=== PATIENT | female | born 1960 | race Caucasian/White ===

== ENCOUNTER 2016-12-25 18:59 | Emergency (ER) | payer BC ==
[2016-12-25 19:25] VITALS: BP 118/61
--- NOTE | 2016-12-25 19:39 | UC ---
Eye Complaint HPI - HPI Summary HPI Summary: right eye redness / white discharge x 1 day no eye pain , no change in vision - History of Current Complaint Chief Complaint: UCEye Stated Complaint: RIGHT EYE COMPLAINT Time Seen by Provider: 12/25/16 19:13 Hx Obtained From: Patient Onset/Duration: Gradual Onset, Lasting Days - 1, Still Present Timing: Constant Severity Initially: Moderate Severity Currently: Moderate Location of Injury: Conjunctiva Aggravating Factor(s): Blinking Alleviating Factor(s): Nothing Associated Signs And Symptoms: Positive: Drainage (Purulent) - right eye. Negative: Photophobia, Vision Impairment Right, Vision Impairment Left, Fever, Swelling - Allergies/Home Medications Allergies/Adverse Reactions: Allergies Allergy/AdvReac Type Severity Reaction Status Date / Time No Known Allergies Allergy Verified 12/25/16 19:18 PMH/Surg Hx/FS Hx/Imm Hx Previously Healthy: Yes - Surgical History Surgical History: Yes Surgery Procedure, Year, and Place: bunionectomy - Family History Known Family History: Negative: Diabetes - Social History Alcohol Use: Occasionally Substance Use Type: None Smoking Status (MU): Never Smoked Tobacco - Immunization History Most Recent Influenza Vaccination: 04/2015 Review of Systems Constitutional: Negative Skin: Negative Eyes: Drainage, Eye Redness ENT: Negative Respiratory: Negative All Other Systems Reviewed And Are Negative: Yes Physical Exam Triage Information Reviewed: Yes Appearance: Well-Appearing, No Pain Distress, Well-Nourished Vital Signs: Initial Vital Signs Temp 99.4 F 12/25/16 19:19 Pulse 68 12/25/16 19:19 Resp 18 12/25/16 19:19 BP 118/61 12/25/16 19:19 Pulse Ox 99 12/25/16 19:19 Vital Signs Reviewed: Yes Eyes: Positive: Conjunctiva Inflamed - right eye, Discharge - right eye ENT: Positive: Normal ENT inspection, Hearing grossly normal, Pharynx normal Neck exam: Normal Neck: Positive: Supple, Nontender Respiratory: Positive: Chest non-tender, Lungs clear, Normal breath sounds Cardiovascular: Positive: RRR, No Murmur, Pulses Normal Skin Exam: Normal Eye Complaint Course/Dx - Differential Dx/Diagnosis Provider Diagnoses: conjunctivitis right eye Discharge - Discharge Plan Condition: Stable Disposition: HOME Prescriptions: Tobramycin 0.3% [email or web address]* 1 drop RIGHT EYE Q4H #1 btl Patient Education Materials: Conjunctivitis (ED) Forms: *Work Release Referrals: Osmar Huston DO [Primary Care Provider] - 7 Days
== END 2016-12-25 19:43 | disposition home or self-care (01) ==
LOC: UCCORT 18:59
DX: H10.89 Other conjunctivitis (principal)
CPT/HCPCS: 99212; G0463

== ENCOUNTER 2023-12-08 05:41 | Observation (INO) ==
[~2023-12-08 05:41] MED LIST: Metoclopramide 5 MG/ML VIAL (10 mg) IV PRN; NS 0.45% 1000 ml BAG 1,000 ML IV SCH; Naloxone 0.4 mg VIAL 0.4 mg/ml 1 ml VIAL IV PRN; Ondansetron 4 mg VIAL 2 MG/ML 2 ml VIAL IV PRN
[2023-12-08] MEDS: Acetaminophen IV 1 GM/100ML 1,000 MG/100 ML BAG IV ONE (06:04)
[2023-12-08] MEDS: Buffered Lidocaine 1% SYRIN 1 ml INTRADERM ONE (06:04)
[2023-12-08] MEDS ORDERED: ceFAZolin 2 GM in NS PREMIX 2 GM/100 ML BAG IVPB ONE (06:07)
[2023-12-08] MEDS ORDERED: Tranexamic Acid 1 GM/100ML BAG 2,000 MG/200 ML BAG IV ONE (06:07)
[2023-12-08 06:27] LABS: Rapid COVID-19 Molecular Undetected (Undetected)
[2023-12-08] MEDS: Lactated Ringers 1000 ml BAG 1,000 ML IV SCH ×2 (06:31→11:45)
[2023-12-08] MEDS: Scopolamine 1 mg/72hr PATCH TRANSDERM ONE (06:32)
[2023-12-08] MEDS ORDERED: Propofol 10 MG/ML 20 ML BTL ONE ×2 (07:10→08:49)
[2023-12-08] MEDS ORDERED: Lidocaine 2% PF 5 ML VIAL ONE (07:10)
[2023-12-08] MEDS ORDERED: fentaNYL 100 mcg/2 ml 50 MCG/ML VIAL ONE ×3 (07:10→10:07)
[2023-12-08] MEDS ORDERED: ROPIVACAINE 5 MG/ML 30 ML BTL (0.5%) ONE (07:11)
[2023-12-08] MEDS ORDERED: Dexamethasone IV 4 MG/ML VIAL 1 ml VIAL ONE (07:11)
[2023-12-08] MEDS ORDERED: Midazolam 2 mg/2 ml VIAL 1 mg/ml 2 ml VIAL (2 mg) ONE ×2 (07:11)
[2023-12-08] MEDS ORDERED: Ondansetron 4 mg VIAL 2 MG/ML 2 ml VIAL IV PRN (07:25)
[2023-12-08] MEDS ORDERED: Lactulose 30 ml UDC PO PRN (07:25)
[2023-12-08] MEDS ORDERED: Magnesium Hydroxide LIQ 30 ML UDC PO PRN (07:25)
[2023-12-08] MEDS ORDERED: Ondansetron ODT 4 mg TAB 4 MG TAB PO PRN (07:25)
[2023-12-08] MEDS ORDERED: Morphine 2 MG/ML SYRINGE IV PRN (07:25)
[2023-12-08] MEDS: fentaNYL 100 mcg/2 ml 50 MCG/ML VIAL IV PRN (10:09)
[2023-12-08] MEDS: Magnesium Hydroxide LIQ 30 ML UDC PO SCH (11:45)
[2023-12-08] MEDS: Vitamin THERAPEUTIC TAB PO SCH (11:45)
[2023-12-08] MEDS: ceFAZolin 1 GM ADVAN 1 GM in NS 0.9% 50 ML 50 ML IVPB SCH (15:25)
[2023-12-08 15:41] VITALS: BP 152/80
== END 2023-12-08 16:15 | disposition home or self-care (01) ==
LOC: OR 05:41 → SSU 05:41
PROVIDERS: ADMIT Orthopaedic Surgery Adult Reconstructive Orthopaedic Surgery; ATTEND Orthopaedic Surgery Adult Reconstructive Orthopaedic Surgery